=== PATIENT | male | born 1990 | race Caucasian/White ===

== ENCOUNTER 2019-03-11 11:48 | Outpatient (CLI) | payer MEDICAID | END 2019-03-11 23:59 | disposition home or self-care (01) | LOC: RAD 11:48 | PROVIDERS: ATTEND Psychiatry & Neurology Neurology | DX: R56.9 Unspecified convulsions (principal) | CPT/HCPCS: 95816 ==

== ENCOUNTER 2020-10-20 11:49 | Emergency (ER) | payer MEDICAID ==
[~2020-10-20] VITALS: Ht 172.7 cm; Wt 109.1 kg
[2020-10-20] MEDS ORDERED: ketorolac tromethamine 15mg/ml inj. IV ONE (12:40)
[2020-10-20] MEDS ORDERED: normal saline 1000ML IV soln IVB ONE (12:40)
[2020-10-20] MEDS ORDERED: ondansetron/PF 4mg/2ml inj IV ONE (12:40)
[2020-10-20 13:11] LABS: BASOPHILS % (AUTO) 0.5 % (0-1); EOSINOPHILS % (AUTO) 0.5 % (0-6); HEMATOCRIT 43.1 % (42.0-52.0); HEMOGLOBIN 14.7 g/dl (14.0-17.9); LYMPHOCYTES # (AUTO) 2.4 X10'3 (1.1-4.8); LYMPHOCYTES % (AUTO) 28.5 % (21-51); MEAN CORPUSCULAR HEMOGLOBIN 31.1 PG (27.0-31.0); MEAN CORPUSCULAR HGB CONC 34.2 g/dL (33.0-36.5); MEAN CORPUSCULAR VOLUME 90.9 FL (78-98); MEAN PLATELET VOLUME 7.7 FL (7.4-10.4); MONOCYTES # (AUTO) 0.6 X10'3 (0-0.9); NEUTROPHILS # (AUTO) 5.4 X10'3 (1.8-7.7); NEUTROPHILS % (AUTO) 63.5 % (42-75); PLATELET COUNT 320 X10'3 (140-440); RED BLOOD COUNT 4.74 X10'6 (4.70-6.10); RED CELL DISTRIBUTION WIDTH 12.5 % (11.5-14.5); WHITE BLOOD COUNT 8.5 X10'3 (4.5-11.0)
[2020-10-20 13:56] LABS: ALANINE AMINOTRANSFERASE 32 U/L (12-78); ALBUMIN 4.4 G/DL (3.4-5.0); ALBUMIN/GLOBULIN RATIO 1.3 (1.1-1.5); ALKALINE PHOSPHATASE 109 IU/L (46-116); ANION GAP 13 (8-16); ASPARTATE AMINO TRANSFERASE 20 U/L (10-37); BILIRUBIN,TOTAL 1.1 MG/DL (0.1-1.0); BLOOD UREA NITROGEN 8 MG/DL (7-18); BUN/CREATININE RATIO 8.5 (5.4-32.0); CALCIUM 9.4 MG/DL (8.5-10.1); CHLORIDE 110 MMOL/L (99-107); CREATININE 0.94 MG/DL (0.60-1.10); GLUCOSE 82 MG/DL (70-104); POTASSIUM 3.5 MMOL/L (3.5-5.1); SODIUM 143 MMOL/L (135-145); TOTAL CARBON DIOXIDE 20.4 MMOL/L (24-32); TOTAL PROTEIN 7.9 G/DL (6.4-8.2); eGFR > 90 ML/MIN
[2020-10-20 15:10] VITALS: BP 133/84
== END 2020-10-20 16:07 | disposition home or self-care (01) ==
LOC: ER 11:49
DX: R10.31 Right lower quadrant pain (principal); K59.00 Constipation, unspecified; R11.2 Nausea with vomiting, unspecified
CPT/HCPCS: 36415; 74176; 80053; 85025; 96361; 96374; 96375; 99284; J1885; J2405; J7030

== ENCOUNTER 2020-12-08 12:57 | Outpatient (CLI) | payer MEDICAID | END 2020-12-08 23:59 | disposition home or self-care (01) | LOC: RAD 12:57 | PROVIDERS: ATTEND Psychiatry & Neurology Neurology | DX: R94.01 Abnormal electroencephalogram [EEG] (principal) | CPT/HCPCS: 95816 ==

== ENCOUNTER 2021-07-13 12:47 | Emergency (ER) | payer MEDICAID ==
[~2021-07-13] VITALS: Ht 177.8 cm; Wt 102.3 kg
[2021-07-13 16:45] LABS: CLARITY,URINE CLEAR (Clear); COLOR,URINE YELLOW (Yellow); GLUCOSE, URINE NEGATIVE (Neg); KETONES,URINE NEGATIVE (Neg); LEUKOCYTE ESTERASE ,URINE NEGATIVE (Neg); NITRITES, URINE NEGATIVE (Neg); OCCULT BLOOD,URINE NEGATIVE (Neg); PROTEIN,URINE NEGATIVE (Neg); UROBILINOGEN,URINE 0.2 E.U/dL (0.2-1.0)
[2021-07-13 16:46] LABS: BASOPHILS % (AUTO) 0.5 % (0-1); EOSINOPHILS # (AUTO) 0.1 X10'3 (0-0.9); HEMATOCRIT 42.9 % (42.0-52.0); HEMOGLOBIN 14.5 g/dl (14.0-17.9); LYMPHOCYTES # (AUTO) 2.8 X10'3 (1.1-4.8); LYMPHOCYTES % (AUTO) 33.3 % (21-51); MEAN CORPUSCULAR HEMOGLOBIN 31.3 PG (27.0-31.0); MEAN CORPUSCULAR HGB CONC 33.8 g/dL (33.0-36.5); MEAN CORPUSCULAR VOLUME 92.6 FL (78-98); MEAN PLATELET VOLUME 7.5 FL (7.4-10.4); MONOCYTES # (AUTO) 0.7 X10'3 (0-0.9); NEUTROPHILS # (AUTO) 4.9 X10'3 (1.8-7.7); NEUTROPHILS % (AUTO) 57.2 % (42-75); PLATELET COUNT 320 X10'3 (140-440); RED BLOOD COUNT 4.64 X10'6 (4.70-6.10); RED CELL DISTRIBUTION WIDTH 12.7 % (11.5-14.5); WHITE BLOOD COUNT 8.5 X10'3 (4.5-11.0)
[2021-07-13 16:49] LABS: UA COLLECTION TYPE VOIDED
[2021-07-13 16:59] LABS: ALBUMIN 4.4 G/DL (3.4-5.0); ANION GAP 15 (8-16); BILIRUBIN,TOTAL 0.6 MG/DL (0.1-1.0); BLOOD UREA NITROGEN 12 MG/DL (7-18); BUN/CREATININE RATIO 12.1 (5.4-32.0); CALCIUM 9.1 MG/DL (8.5-10.1); CHLORIDE 109 MMOL/L (99-107); CREATININE 0.99 MG/DL (0.60-1.10); GLUCOSE 84 MG/DL (70-104); POTASSIUM 3.8 MMOL/L (3.5-5.1); SODIUM 146 MMOL/L (135-145); TOTAL CARBON DIOXIDE 22.2 MMOL/L (24-32); TOTAL PROTEIN 8.1 G/DL (6.4-8.2); eGFR 88 ML/MIN
[2021-07-13 17:00] LABS: ALANINE AMINOTRANSFERASE 38 U/L (12-78); ALBUMIN/GLOBULIN RATIO 1.2 (1.1-1.5); ALKALINE PHOSPHATASE 114 IU/L (46-116); ASPARTATE AMINO TRANSFERASE 23 U/L (10-37)
[2021-07-13 17:01] LABS: URINE AMPHETAMINE SCREEN NEGATIVE (Neg); URINE BARBITUATE SCREEN NEGATIVE (Neg); URINE BENZODIAZEPINES SCREEN NEGATIVE (Neg); URINE CANNABINOID SCREEN POSITIVE (Neg); URINE COCAINE SCREEN NEGATIVE (Neg); URINE METHADONE SCREEN NEGATIVE (Neg); URINE PHENCYCLIDINE SCREEN NEGATIVE (Neg)
[2021-07-13 17:09] LABS: ETHANOL < 0.010 GM/DL (0.0-0.010)
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
[2021-07-13 17:17] LABS: URINE OPIATE SCREEN NEGATIVE (Neg)
--- NOTE | 2021-07-13 17:39 | NUR ---
PT PARAMJIT DENNIS [phone] CALL FOR ALL QUESTIONS
--- NOTE | 2021-07-13 17:46 | NUR ---
PACKET FAXED TO [facility]
[2021-07-13] MEDS ORDERED: MAGN400C PO (18:32)
[2021-07-13] MEDS ORDERED: HYDR-3686 PO (18:32)
[2021-07-13] MEDS ORDERED: hydrOXYzine 25 MG tablet PO PRN (18:45)
--- NOTE | 2021-07-13 19:00 | NUR ---
Patient is ambulatory, he paces on the unit. Patient is cooperative, he exhibits limited understanding of his situation.
[2021-07-13] MEDS: magnesium oxide 400mg tablet PO SCH (19:42)
--- NOTE | 2021-07-13 19:50 | NUR ---
Patient in view from nurses station. He complains of feeling anxiety. Plan is to administer Atarax and patients Mag-Ox shortly.
--- NOTE | 2021-07-13 20:43 | NUR ---
Patient complied with night time medications including Atarax for anxiety. He is resting quietly.
--- NOTE | 2021-07-14 01:42 | NUR ---
Patient sleeps quietly on his left side. In direct view from nurses station.
--- NOTE | 2021-07-14 04:00 | NUR ---
Patient sleeps on his left side. No distress.
[2021-07-14 06:12] VITALS: BP 106/63
--- NOTE | 2021-07-14 07:35 | NUR ---
Pt sleeping, resp unlabored
[2021-07-14] MEDS: magnesium oxide 400mg tablet PO SCH (08:05)
--- NOTE | 2021-07-14 08:29 | NUR ---
Pt up eating breakfast, responding to internal stimuli
--- NOTE | 2021-07-14 08:51 | NUR ---
[facility] talking with pt. PT mom calls to check on pt and requests SCM call her when she is done.
--- NOTE | 2021-07-14 11:00 | NUR ---
Pt given colors and paper which he uses to draw. He then rested back in bed.
--- NOTE | 2021-07-14 12:36 | NUR ---
Pt is accepted at [facility] per Dr Simpson. PT given his belongings and got dressed to leave. Statistician will be here in 10 min per [facility]
== END 2021-07-14 13:00 ==
LOC: ER 12:48
DX: R45.850 Homicidal ideations (principal); Z20.822 Contact with and (suspected) exposure to COVID-19
CPT/HCPCS: 36415; 80053; 80305; 80320; 81003; 84443; 85025; 87635; 99285; C9803; Q0177

== ENCOUNTER 2025-01-07 09:51 | Emergency (ER) | payer MEDICAID ==
[~2025-01-07] VITALS: Ht 172.7 cm; Wt 240.0 kg
[~2025-01-07 09:51] MED LIST: HYDR-3686 PO; MAGN400C PO
[2025-01-07 11:04] LABS: BASOPHILS % (AUTO) 0.4 % (0-1); EOSINOPHILS # (AUTO) 0.1 X10'3 (0-0.9); EOSINOPHILS % (AUTO) 1.3 % (0-6); HEMOGLOBIN 14.9 g/dl (14.0-17.9); LYMPHOCYTES # (AUTO) 3.1 X10'3 (1.1-4.8); LYMPHOCYTES % (AUTO) 31.7 % (21-51); MEAN CORPUSCULAR HEMOGLOBIN 31.2 PG (27.0-31.0); MEAN CORPUSCULAR HGB CONC 33.8 g/dL (33.0-36.5); MEAN CORPUSCULAR VOLUME 92.2 FL (78-98); MEAN PLATELET VOLUME 7.4 FL (7.4-10.4); MONOCYTES # (AUTO) 0.8 X10'3 (0-0.9); MONOCYTES % (AUTO) 8.5 % (2-12); NEUTROPHILS # (AUTO) 5.7 X10'3 (1.8-7.7); NEUTROPHILS % (AUTO) 58.1 % (42-75); PLATELET COUNT 380 X10'3 (140-440); RED BLOOD COUNT 4.78 X10'6 (4.70-6.10); WHITE BLOOD COUNT 9.8 X10'3 (4.5-11.0)
[2025-01-07 11:22] LABS: ANION GAP 10 (8-16); BLOOD UREA NITROGEN 9 MG/DL (7-18); BUN/CREATININE RATIO 9.6 (10.0-20.0); CALCIUM 9.2 MG/DL (8.5-10.1); CHLORIDE 106 MMOL/L (99-107); CREATININE 0.94 MG/DL (0.60-1.10); GLUCOSE 103 MG/DL (70-104); POTASSIUM 4.2 MMOL/L (3.5-5.1); SALICYLATE 1.6 MG/DL (4.0-20.0); SODIUM 141 MMOL/L (135-145); TOTAL CARBON DIOXIDE 25.5 MMOL/L (24-32); eCRCL 107 ML/MIN; eGFR > 90 ML/MIN
[2025-01-07 11:26] LABS: ACETAMINOPHEN < 2.0 UG/ML (10-30); ETHANOL < 10 MG/DL (<10)
[2025-01-07] MEDS: ziprasidone IM 20mg inj **IM only IM ONE (11:28)
[2025-01-07] MEDS ORDERED: BUPR-564 PO (12:44)
[2025-01-07] MEDS ORDERED: ARIP5TAB53 PO (12:44)
[2025-01-07] MEDS ORDERED: MAGN400T50 PO (12:44)
[2025-01-07] MEDS ORDERED: NAPR-1166 PO (12:44)
[2025-01-07] MEDS ORDERED: PREG75CA76 PO (12:44)
[2025-01-07 12:58] LABS: BILIRUBIN,URINE NEGATIVE (Neg); CLARITY,URINE CLEAR (Clear); COLOR,URINE YELLOW (Yellow); GLUCOSE, URINE NEGATIVE (Neg); KETONES,URINE NEGATIVE (Neg); LEUKOCYTE ESTERASE ,URINE NEGATIVE (Neg); NITRITES, URINE NEGATIVE (Neg); OCCULT BLOOD,URINE NEGATIVE (Neg); PROTEIN,URINE NEGATIVE (Neg); UROBILINOGEN,URINE 0.2 E.U/dL (0.2-1.0)
[2025-01-07 13:03] LABS: UA COLLECTION TYPE CLN CATCH MIDSTREAM
[2025-01-07 13:18] LABS: URINE AMPHETAMINE SCREEN NEGATIVE (Neg); URINE BARBITUATE SCREEN NEGATIVE (Neg); URINE BENZODIAZEPINES SCREEN NEGATIVE (Neg); URINE CANNABINOID SCREEN POSITIVE (Neg); URINE COCAINE SCREEN NEGATIVE (Neg); URINE METHADONE SCREEN NEGATIVE (Neg); URINE OPIATE SCREEN NEGATIVE (Neg); URINE PHENCYCLIDINE SCREEN NEGATIVE (Neg)
[2025-01-07] MEDS: hydrOXYzine 25 MG tablet PO PRN (17:28)
[2025-01-07] MEDS: pregabalin 75mg capsule PO SCH (20:26)
[2025-01-07] MEDS: naproxen 375mg tablet PO SCH (20:32)
[2025-01-08 04:19] VITALS: TEMP 96.5
[2025-01-08] MEDS: magnesium oxide 400mg tablet PO SCH (08:32)
[2025-01-08] MEDS: aripiprazole 5mg tablet PO SCH (08:32)
[2025-01-08] MEDS: BUPROPION HCL 150MG XL 24 HR 150 MG TAB PO SCH (08:32)
[2025-01-08 10:49] VITALS: BP 157/93; PULSE 76; RESP 15; O2SAT 100
== END 2025-01-08 12:19 | disposition home or self-care (01) ==
LOC: ER 09:52
DX: R45.850 Homicidal ideations (principal); R45.1 Restlessness and agitation; G89.29 Other chronic pain; Z79.899 Other long term (current) drug therapy; Z20.822 Contact with and (suspected) exposure to COVID-19
CPT/HCPCS: 36415; 80048; 80305; 80320; 80329; 81003; 85025; 87811; 96372; 99284; J3486; Q0177; 99285